=== PATIENT | male | born 1935 | race Caucasian/White ===

== ENCOUNTER → 2020-10-08 00:54 | Outpatient (CLI) | payer MEDICARE, SELFPAY ==
[2020-10-08 20:24] LABS: SARS-CoV-2 RNA PCR Negative
== END ==
PROVIDERS: PCP Family Medicine Adolescent Medicine; Visit Provider Plastic Surgery
DX: Z01.812 Encounter for preprocedural laboratory examination (principal); Z20.822 Contact with and (suspected) exposure to COVID-19
CPT/HCPCS: C9803; U0003; U0005

== ENCOUNTER 2020-10-11 01:03 | Day surgery (SDC) | payer MEDICARE, SELFPAY ==
[2020-10-03 12:31] VITALS: BMI 25.5
[2020-10-11] VITALS (10 sets, daily range): BP systolic 134–148; BP diastolic 69–87; PULSE 65–101; RESP 16–18; TEMP 36.1; O2SAT 93–97
--- NOTE | 2020-10-11 07:04 | WPDHPUPDATE1 ---
History and Physical Update Update Date/Time: 10/11/20 07:04 History and Physical has been reviewed, including an updated exam of the patient. There are NO changes in the patient's condition. Risks, benefits, and alternatives have been discussed and questions answered. Patient agrees to proceed with procedure.
[2020-10-11] MEDS: LIDO 1%/EPINEPHRINE 1:100,000 50 ML VIAL 8 ML INFILTRATE (10:59)
[2020-10-11] MEDS: BACITRACIN OINTMENT 15 GM TUBE 1 APPLIC TOPICAL (12:07)
--- NOTE | 2020-10-11 12:30 | PM.OP ---
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 Anesthesia: local Surgeon: Oenal Doyle MD Estimated blood loss (mL): 3 Packing: No Pathology: yes Complications: No immediate complications Condition: stable Disposition: same day
--- NOTE | 2020-10-11 12:33 | PM.PROC ---
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 A time-out was held and confirmed. The site on the left ear was identified and carefully marked for excision this area was infiltrated with 1% lidocaine with epinephrine. The full-thickness skin ellipse was taken. A suture was placed at the most superior aspect identifying the 12 o'clock position. The specimen was sent to pathology. Pathologist reports basal cell carcinoma completely excised. This wound could not be closed directly with sutures. A skin graft was harvested from left upper neck carefully defatted and inset with 5 0 nylon sutures including some quilting stitches. The donor site was undermined closed with interrupted intradermal 4-0 Monocryl sutures and glue. The patient is discharged home with instructions in wound care and follow-up. As prescription for cephalexin 500 mg to be taken t.i.d. for 5 days. He has a prescription for tramadol 50 mg 8. Anesthesia: local Surgeon: Oneal Doyle MD Estimated blood loss (mL): 3 Drains: No Packing: No Pathology: yes Complications: No immediate complications Condition: stable Disposition: same day
== END 2020-10-11 13:15 | disposition home or self-care (01) ==
PROVIDERS: PCP Family Medicine Adolescent Medicine; Visit Provider Plastic Surgery
PROC: (CPT 11642; principal; 2020-10-11 10:30)
DX: C44.219 Basal cell carcinoma of skin of left ear and external auricular canal (principal); Z79.82 Long term (current) use of aspirin
CPT/HCPCS: 11642; 15260; 88305; 88331; A9270